=== PATIENT | female | born 1985 | race Hispanic/Latino ===

== ENCOUNTER 2018-01-16 23:36 | Emergency (ER) | payer OTHER ==
[~2018-01-16] VITALS: Ht 149.9 cm; Wt 58.1 kg
--- NOTE | 2018-01-17 01:16 | Diagnostic Imaging Report ---
EXAMINATION: Head CT without contrast. HISTORY:Numbness. COMPARISON:None. TECHNIQUE: Multidetector axial images were obtained from the foramen magnum to the vertex without contrast. The images were reconstructed using brain and bone algorithms. Thin section brain images were reformatted into coronal and sagittal planes. Dose modulation, iterative reconstruction, and/or weight based adjustment of the mA/kV was utilized to reduce the radiation dose to as low as reasonably achievable. Intravenous contrast: None IMAGE QUALITY: Acceptable. FINDINGS: Skull/scalp: No lytic or blastic. lesions. No surgical changes. Parenchyma: No abnormal density. No acute hemorrhage, mass or acute major vascular territorial infarct. Arteries: No density suggestive of thrombosis. Dural sinuses: No abnormal density suggestive of thrombosis. Ventricles: No hydrocephalus or displacement. Extra-axial spaces: No abnormal density. Brain volume: Normal for age. Craniocervical junction: No mass, Chiari malformation, or basilar invagination. Sella: No mass. Paranasal/mastoid sinuses: Mild mucosal thickening in bilateral ethmoid sinuses. IMPRESSION: No intracranial abnormality. Signed by: Dr. Annemarie Cooper M.D. on 01/17/2018 1:13 AM
--- NOTE | 2018-01-17 01:20 | Diagnostic Imaging Report ---
History: Right upper extremity pain and numbness. Comparison studies: None Technique: Axial images were obtained through the cervical region.. Coronal and sagittal images reconstructed from the axial data. Dose modulation, iterative reconstruction, and/or weight based adjustment of the mA/kV was utilized to reduce the radiation dose to as low as reasonably achievable. Intravenous contrast: None Findings: Fractures: None. Soft tissue injuries: None. Atlantoaxial articulation: Intact. Alignment: Loss of normal cervical lordosis is either positional or due to muscle spasm. No scoliosis. Cervicomedullary junction: No abnormalities. The foramen magnum is patent. Soft tissues: No abnormalities. Vertebrae: No fractures, infection or neoplasm. Degenerative changes: None. IMPRESSION: 1. No acute cervical spine fracture or dislocation. Loss of normal cervical lordosis is either positional or due to muscle spasm. 2. Ligament, spinal cord and or vascular abnormalities cannot be excluded on the basis of this examination. Signed by: Dr. Annemarie Cooper M.D. on 01/17/2018 1:17 AM
--- NOTE | 2018-01-17 01:23 | Diagnostic Imaging Report ---
EXAMINATION: CXR 2 VIEW - [facility] INDICATION: Right-sided chest pain, rib pain radiating to the right arm COMPARISON: None FINDINGS: TUBES and LINES: None. LUNGS: Lungs are well inflated. Lungs are clear. There is no evidence of pneumonia or pulmonary edema. PLEURA: No pleural effusion or pneumothorax. HEART AND MEDIASTINUM: The cardiomediastinal silhouette is unremarkable. BONES AND SOFT TISSUES: No acute osseous lesion. Soft tissues are unremarkable. UPPER ABDOMEN: No free air under the diaphragm. IMPRESSION: No acute thoracic abnormality. Signed by: Dr. Jose Francisco Barone M.D. on 01/17/2018 1:20 AM
[2018-01-17 01:48] VITALS: BP 126/68
== END 2018-01-17 01:49 | disposition home or self-care (01) ==
LOC: FSED 23:36
DX: R20.2 Paresthesia of skin (principal)
CPT/HCPCS: 70450; 71046; 72125; 80053; 80307; 81003; 81025; 82553; 84484; 85025; 93005; 99283

== ENCOUNTER 2019-02-03 17:43 | Emergency (ER) | payer OTHER ==
[~2019-02-03] VITALS: Ht 152.4 cm; Wt 62.3 kg
--- OUTSIDE RECORDS SUMMARY | 2019-02-03 17:45 | XMS REPORT ---
Author Author [facility] Organization [facility] Address Unknown Phone Unavailable Care Team Providers Care Application Helper Name Role Phone ROSEMARY GONZALEZ Unavailable Unavailable Payers Payer Name Policy Type Policy Number Effective Date Expiration Date Problems This patient has no known problems. Allergies, Adverse Reactions, Alerts Allergy Name Allergy Type Status Severity Reaction(s) Onset Date Inactive Date Treating Clinician Comments No Known Allergies DA Active U 2012-02-21 00:00:00 Medications This patient has no known medications. Results Test Description Test Time Test Comments Text Results Atomic Results Result Comments CXR 2 VIEW - [facility] 2018-01-17 01:19:00 [place] [address] Patient Name: URIAH COTTON MR #: [id number] : 1985 Age/Sex: 32/F Req #: [id number] Adm Physician: Ordered by: ROSEMARY GONZALEZ MD Report #: [id number] Location: [facility] Room/Bed: Procedure: [id number] [facility]/CXR 2 VIEW - [facility] Exam Date: 01/17/18 Exam Time: 0048 REPORT STATUS: Signed EXAMINATION: CXR 2 VIEW - [facility] INDICATION: Right- sided chest pain, rib pain radiating to the right arm COMPARISON: None FINDINGS: TUBES and LINES: None. LUNGS: Lungs are well inflated. Lungs are clear. There is no evidence of pneumonia or pulmonary edema. PLEURA: No pleural effusion or pneumothorax. HEART AND MEDIASTINUM: The cardiomediastinal silhouette is unremarkable. BONES AND SOFT TISSUES: No acute osseous lesion. Soft tissues are unremarkable. UPPER ABDOMEN: No free air under the diaphragm. IMPRESSION: No acute thoracic abnormality. Signed by: Dr. Jose Francisco Barone M.D. on 01/17/2018 1:20 AM Dictated By: JOSE FRANCISCO JONES MD 9 Transcribed By: REBECCA on 01/17/18119 COPY TO: ROSEMARY GONZALEZ MD CT C-SPINE W/O - [facility] 2018-01-17 01:13:00 [place] [address] Patient Name: URIAH COTTON MR #: [id number] : 1985 Age/Sex: 32/F Req #: [id number] Adm Physician: Ordered by: ROSEMARY GONZALEZ MD Report #: [id number] [facility] Room/Bed: Procedure: [id number] HOPD/CT C-SPINE W/O - [facility] Exam Date: 01/17/18 Exam Time: 0048 REPORT STATUS: Signed History: Right upper extremity pain and numbness. Comparison studies: None Technique: Axial images were obtained through the cervical region.. Coronal and sagittal images reconstructed from the axial data. Dose modulation, iterative reconstruction, and/or weight based adjustment of the mA/kV was utilized to reduce the radiation dose to as low as reasonably achievable. Intravenous contrast: None Findings: Fractures: None. Soft tissue injuries: None. Atlantoaxial articulation: Intact. Alignment: Loss of normal cervical lordosis is either positional or due to muscle spasm. No scoliosis. Cervicomedullary junction: No abnormalities. The foramen magnum is patent. Soft tissues: No abnormalities. Vertebrae: No fractures, infection or neoplasm. Degenerative changes: None. IMPRESSION: 1. No acute cervical spine fracture or dislocation. Loss of normal cervical lordosis is either positional or due to muscle spasm. 2. Ligament, spinal cord and or vascular abnormalities cannot be excluded on the basis of this examination. Signed by: Dr. Annemarie Cooper M.D. on 01/17/2018 1:17 AM Dictated By: ANNEMARIE COOPER MD 6 Transcribed By: REBECCA on 01/17/18116 COPY TO: ROSEMARY GONZALEZ MD CT BRAIN [facility] 2018-01-17 01:09:00 [place] [address] Patient Name: URIAH COTTON MR #: [id number] : 1985 Age/Sex: 32/F Req #: [id number] Adm Physician: Ordered by: ROSEMARY GONZALEZ MD Report #: [id number] [facility] Room/Bed: Procedure: [id number] [facility] Exam Date: 01/17/18 Exam Time: 0048 REPORT STATUS: Signed EXAMINATION: Head CT without contrast. HISTORY:Numbness. COMPARISON:None. TECHNIQUE: Multidetector axial images were obtained from the foramen magnum to the vertex without contrast. The images were reconstructed using brain and bone algorithms. Thin section brain images were reformatted into coronal and sagittal planes. Dose modulation, iterative reconstruction, and/or weight based adjustment of the mA/kV was utilized to reduce the radiation dose to as low as reasonably achievable. Intravenous contrast: None IMAGE QUALITY: Acceptable. FINDINGS: Skull/scalp: No lytic or blastic. lesions. No surgical changes. Parenchyma: No abnormal density. No acute hemorrhage, mass or acute major vascular territorial infarct. Arteries: No density suggestive of thrombosis. Dural sinuses: No abnormal density suggestive of thrombosis. Ventricles: No hydrocephalus or displacement. Extra- axial spaces: No abnormal density. Brain volume: Normal for age. Craniocervical junction: No mass, Chiari malformation, or basilar invagination. Sella: No mass. Paranasal/mastoid sinuses: Mild mucosal thickening in bilateral ethmoid sinuses. IMPRESSION: No intracranial abnormality. Signed by: Dr. Annemarie Cooper M.D. on 01/17/2018 1:13 AM Dictated By: ANNEMARIE COOPER MD 2 Transcribed By: REBECCA on 01/17/18112 COPY TO: ROSEMARY GONZALEZ MD
--- NOTE | 2019-02-03 18:58 | NUR ---
report recieved from [facility]. waiting on pateints decision on transferr. no MRI coverge for ER.
--- NOTE | 2019-02-03 19:00 | NUR ---
pt denies pain at this time. no medications given.
--- NOTE | 2019-02-03 19:15 | NUR ---
pt signed out AMA, refusing transfer. pt given risk factors and resources to follow up with. pt verbalixed understanding of risk factors for signing out AMA.
[2019-02-03 19:53] VITALS: BP 128/82
== END 2019-02-03 19:20 | disposition left against medical advice (07) ==
LOC: FSED 17:43
DX: G44.221 Chronic tension-type headache, intractable (principal); G44.89 Other headache syndrome
CPT/HCPCS: 36415; 80048; 80076; 81025; 85025; 85651; 99283

== ENCOUNTER 2019-12-06 13:15 | Emergency (ER) | payer OTHER ==
[~2019-12-06] VITALS: Ht 157.5 cm; Wt 65.8 kg
--- NOTE | 2019-12-06 13:17 | Emergency Department Note ---
History of Present Illnes History of Present Illness History of Present Illness This is a 34 year old female c/o dry cough SOB, body ache, chest pain on the right radiating to the back for 1 week, COVID tested negative twice. Seen by her pcp yesterday, rx with abx but not getting better and came here for higher level of care. . 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 Any updates have been documented here. Past Medical History Recent Fever: No Clinical Suspicion of Infectio: No New/Unexplained Change in Ment: No Past Medical History: Migraines Past Surgical History: None Other Surgery: root canal Social History Smoking Cessation: Never Smoker Any Illegal Drug Use: No Family History Family history of heart diseas: No Other Last Tetanus: UNKNOWN Review of Systems Review of Systems Constitutional: Reports as per HPI EENTM: Reports no symptoms Cardiovascular: Reports as per HPI Respiratory: Reports pain with cough, Reports dyspnea Gastrointestinal: Reports no symptoms Genitourinary: Reports no symptoms Musculoskeletal: Reports no symptoms Integumentary: Reports no symptoms Neurological: Reports no symptoms Psychological: Reports no symptoms Endocrine: Reports no symptoms Hematological/Lymphatic: Reports no symptoms Physical Exam Related Data Allergies: Coded Allergies: No Known Allergies (Unverified , 08/13/11) Vital signs reviewed: Yes (sat 100 percent RA) Physical Exam CONSTITUTIONAL Constitutional: Present well-developed, Present well-nourished HENT HENT: Present normocephalic, Present atraumatic, Present oropharynx clear/moist, Present nose normal HENT L/R: Present left ext ear normal, Present right ext ear normal EYES Eyes: Reports PERRL, Reports conjunctivae normal NECK Neck: Present ROM normal PULMONARY Pulmonary: Present effort normal, Present breath sounds normal CARDIOVASCULAR Cardiovascular: Present regular rhythm, Present heart sounds normal, Present capillary refill normal, Present normal rate GASTROINTESTINAL Abdominal: Present soft, Present nontender, Present bowel sounds normal GENITOURINARY Genitourinary: Present exam deferred SKIN Skin: Present warm, Present dry MUSCULOSKELETAL Musculoskeletal: Present ROM normal NEUROLOGICAL Neurological: Present alert, Present oriented x 3, Present no gross motor or sensory deficits PSYCHOLOGICAL Psychological: Present mood/affect normal, Present judgement normal Results Laboratory Lab results reviewed: Yes (normal) Imaging Imaging results reviewed: Yes Imaging Comments no acute Assessment & Plan Medical Decision Making MDM viral illness Reassessment Reassessment time: 15:29 Reassessment looks comfortable Assessment & Plan Final Impression: (1) Upper respiratory infection (2) Bronchitis Depart Disposition: HOME, SELF-[facility] living Meds Active Scripts Ibuprofen (IBUPROFEN IB) 200 Mg Tablet, 3 TAB PO Q6H PRN for pain, #60 Prov:RAFAEL QUINONES MD 12/06/19 Diphenhydra/Phenyleph/Acetamin (THERAFLU COLD AND COUGH POWDER) 1 Each Powd.pack, 1 PACKET PO Q6H PRN for fever and or pain, #12 Prov:RAFAEL QUINONES MD 12/06/19 Physician Attestation Provider Attestation She has abx by her PCP and she can cont to finish those RAFAEL QUINONES MD Dec 06, 2019 13:17
--- NOTE | 2019-12-06 15:02 | Diagnostic Imaging Report ---
X-ray chest 2 views Comparison: 01/17/2018 History: Unable to sleep Findings: Central airways unremarkable. Cardiomediastinal silhouettes, diaphragms, pleural spaces, bilateral lung saha, visualized skeletal structures and upper abdomen are normal. Impression: Normal exam. Signed by: He Gregorio MD on 12/06/2019 2:58 PM
[2019-12-06 15:13] LABS: BASOPHILS % 0.5 % (0.0-1.0); EOSINOPHILS % 0.3 % (0.0-6.0); HEMATOCRIT 37.5 % (34.2-44.1); HEMOGLOBIN 12.6 g/dL (12.0-16.0); LYMPHOCYTES % 22.6 % (18.0-39.1); MEAN CORPUSCULAR HEMOGLOBIN 30.5 pg (28-32); MEAN CORPUSCULAR HGB CONC 33.6 g/dL (31-35); MEAN CORPUSCULAR VOLUME 90.8 fL (81-99); MONOCYTES # (AUTO) 0.5 (0.2-0.8); MONOCYTES % 5.5 % (4.4-11.3); NEUTROPHILS # (AUTO) 6.3 (2.1-6.9); NEUTROPHILS % 70.9 % (38.7-80.0); PLATELET COUNT 285 x10e3/uL (140-360); RED BLOOD COUNT 4.13 x10e6/uL (3.6-5.1)
[2019-12-06] MEDS ORDERED: THERAFLU COLD1 EAC4 PO (15:22)
[2019-12-06] MEDS ORDERED: IBUPROFEN IB200 MG PO (15:22)
[2019-12-06 17:15] VITALS: BP 101/70
--- OUTSIDE RECORDS SUMMARY | 2019-12-07 20:41 | XMS REPORT | Continuity of Care Document ---
Author Author [facility] t Organization [facility] Address [address] [place] [address] Phone Unavailable Care Team Providers Care Civil Litigation Attorney Name Role Phone MD ELIZABETH NOONAN PCP [place] QUINONES Attphys Unavailable ROSEMARY GONZALEZ Attphykenia Unavailable Payers Payer Name Policy Type Policy Number Effective Date Expiration Date S yokasta [facility] [id number] 2018 00:00:00 [facility] [place] Problems Condition Name Condition Details Condition Category Status Onset Date Resolution Date Last Treatment Date Treating Clinician Comments Source Upper respiratory tract infection Problem Active [facility] [place] Bronchitis Problem Active [facility] Allergies, Adverse Reactions, Alerts Allergy Name Allergy Type Status Severity Reaction(s) Onset Date Inacti ve Date Treating Clinician Comments Source No Known Allergies DA Active U 2012-02-21 00:00:00 [facility] Social History Social Habit Start Date Stop Date Quantity Comments Source Sex Assigned At 1985 00:00:00 1985 00:00:00 Female [facility] [place] Medications Ordered Medication Name Filled Medication Name Start Date Stop Da te Current Medication? Ordering Clinician Indication Dosage Frequency Signature (SIG) Comments Components Source Diphenhydra/Phenyleph/Acetamin (Theraflu Cold And Cough Powder) 1 Each POWD.PACK Diphenhydra/Phenyleph/Acetamin (Theraflu Cold And Cough Powder) 1 Each POWD.PACK 2019-12-06 15:22:00 Yes 1 Ever y 6 Hours as needed for Fever And Or Pain [facility] Ibuprofen (Ibuprofen Ib) 200 Mg TABLET Ibuprofen (Ibuprofen Ib) 200 Mg TABLET 2019-12-06 15:22:00 Yes 3 Every 6 Hours as n eeded for Pain [facility] [place] Vital Signs Vital Name Observation Time Observation Value Comments Source Body Temperature 2019-12-06 17:15:00 98.9 [degF] [facility] [place] Weight 2019-12-06 16:05:00 145 [lb_av] [facility] [place] BMI (Body Mass Index) 2019-12-06 16:05:00 26.5 kg/m2 [facility] [place] Procedures This patient has no known procedures. Plan of Care Planned Activity Planned Date Details Comments Source Instructions Back Pain [facility] [place] Instructions Upper Respiratory Infection - Adult [facility] [place] Encounters Start Date/Time End Date/Time Encounter Type Admission Type [facility] Care Department Encounter ID Source 2019-12-06 14:03:00 2019-12-06 17:15:00 Departed Emergency Room 1 RAFAEL QUINONES [facility] [id number] [facility] 2019-02-03 17:43:00 2019-02-03 19:20:00 Departed Emergency Room [facility] [id number] [facility] 2018-01-16 23:36:00 2018-01-17 01:49:00 Departed Emergency Room 1 ROSEMARY GONZALEZ [facility] [id number] [facility] [place] Results Test Description Test Time Test Comments Results Result Comments Source CXR 2 VIEW - HOPD 2019-12-06 14:57:00 [place] [address] Patient Name: URIAH COTTON MR #: [id number] : 1985 Age/Sex: 34/F Req #: [id number] Adm Physician: Ordered by: RAFAEL QUINONES MD Report #: [id number] [facility] Room/Bed: Procedure: [id number] HOPD/CXR 2 VIEW - HOPD Exam Date: 12/06/19 Exam Time: 1438 REPORT STATUS: Signed X-ray chest 2 views Comparison: 01/17/2018 History: Unable to sleep Findings: Central airways unremarkable. Cardiomediastinal silhouettes, diaphragms, pleural spaces, bilateral lung saha, visualized skeletal structures and upper abdomen are n ormal. Impression: Normal exam. Signed by: He Charles MD on 12/06/2019 2:58 PM Dictated By: HE CHARLES MD 57 Transcribed By: REBECCA on 12/06/191457 COPY TO: RAFAEL QUINONES MD Blood leukocytes automated count (number/volume) 2019-12-06 14:20:00 Test Item White Blood Count (test code = 6690-2) 8.88 4.8-10.8 [facility] count (number/volume)2019-12-06 14:20:00* Test Item Value Reference Range Interpretation Comments Red Blood Count (test code = 789-8) 4.13 3.6-5.1 [facility] measurement (moles/volume)2019-12-06 14:20:00* Test Item Value Reference Range Interpretation Comments Hemoglobin (test code = 89195-5) 12.6 12.0-16.0 [facility] hematocrit (volume fraction)2019-12-06 14:20:00* Test Item Value Reference Range Interpretation Comments Hematocrit (test code = 4544-3) 37.5 34.2-44.1 [facility] eryth[facility] mean corpuscular enqojw1786-57-31 14:20:00* Test Item Value Reference Range Interpretation Comments Mean Corpuscular Volume (test code = 787-2) 90.8 81-99 [facility] mean corpuscular hemoglobin (mass per erythrocyte)2019-12-06 14:20:00* Test Item Value Reference Range Interpretation Comments Mean Corpuscular Hemoglobin (test code = 785-6) 30.5 28-32 [facility] eryth[facility] mean corpuscular hemoglobin concentration measurement (mass/volume)2019-12-06 14:20:00* Test Item Value Reference Range Interpretation Comments Mean Corpuscular Hemoglobin Concent (test code = 786-4) 33.6 31-35 [facility] [place]DW XvpBq-Azc9910-06-30 14:20:00* Test Item Value Reference Range Interpretation Comments Red Cell Distribution Width (test code = 94728-7) 12.0 11.7 -14.4 [facility] platelet count (count/volume)2019-12-06 14:20:00* Test Item Value Reference Range Interpretation Comments Platelet Count (test code = 777-3) 285 140-360 [facility] segmented neutrophil count as percentage of total efmgdocypy2879-61-29 14:20:00* Test Item Value Reference Range Interpretation Comments Neutrophils (%) (Auto) (test code = 78161-2) 70.9 38.7-80.0 [facility] lymphocyte count as percentage ot total arvxajwxes5478-63-54 14:20:00* Test Item Value Reference Range Interpretation Comments Lymphocytes (%) (Auto) (test code = 736-9) 22.6 18.0-39.1 [facility] monocyte count as percentage of total fryzovqqjk4302-48-62 14:20:00* Test Item Value Reference Range Interpretation Comments Monocytes (%) (Auto) (test code = 5905-5) 5.5 4.4-11.3 [facility] eosinophil count as percentage of total grdbqleyvk1514-19-14 14:20:00* Test Item Value Reference Range Interpretation Comments Eosinophils (%) (Auto) (test code = 713-8) 0.3 0.0-6.0 [facility] basophil count as percentage of total iadyihzjbe6142-94-31 14:20:00* Test Item Value Reference Range Interpretation Comments Basophils (%) (Auto) (test code = 706-2) 0.5 0.0-1.0 [facility]Fluor[facility] procedure less than one hour tluhpumr7610-70-51 14:20:00* Test Item Value Reference Range Interpretation Comments IM GRANULOCYTES % (test code = IM GRANULOCYTES %) 0.2 0.0- 1.0 [facility] neutrophil count 2019-12-06 14:20:00* Test Item Value Reference Range Interpretation Comments Neutrophils # (Auto) (test code = 751-8) 6.3 2.1-6.9 [facility] lymphocytes count (number/volume) 2019-12-06 14:20:00* Test Item Value Reference Range Interpretation Comments Lymphocytes # (Auto) (test code = 31887-2) 2.0 1.0-3.2 [facility] monocytes automated count (number/volume)2019-12-06 14:20:00* Test Item Value Reference Range Interpretation Comments Monocytes # (Auto) (test code = 742-7) 0.5 0.2-0.8 [facility] eosinophil count 2019-12-06 14:20:00* Test Item Value Reference Range Interpretation Comments Eosinophils # (Auto) (test code = 711-2) 0.0 0.0-0.4 [facility] basophil count (count/volume)2019-12-06 14:20:00* Test Item Value Reference Range Interpretation Comments Basophils # (Auto) (test code = 704-7) 0.0 0.0-0.1 [facility]Fluor[facility] procedure less than one hour apexadhw6051-71-17 14:20:00* Test Item Value Reference Range Interpretation Comments Absolute Immature Granulocyte (auto (earlene t code = Absolute Immature Granulocyte (auto) 0.02 0-0.1 [facility] [place]- CT HEAD/BRAIN W/O [id number] 21:45:00 Patient Name: URIAH COTTON ([facility]) Unit No: [id number] EXAMS: CPT CODE: [id number] CT HEAD/BRAIN W/O CONT [address] HEAD INDICATION: Headache. canal surgery 3 weeks prior. TECHNIQUE: Unenhanced CT was performed from the skull vertex to the foramen magnum with axial, coronal and sagittal reconstructions. CT imaging performed at this location utilizes radiation dose optimization technique which includes one or more of the followin) Automated exposure control; 2) Adjustment of the mA and/or kV according to patient's size; 3) Use of iterative reconstruction techniques. DLP (mGy-cm): 672 COMPARISONS: None. FINDINGS: The paranasal sinuses are clear as visualized. The mastoid air cells and middle ears appear clear as visualized. There is no acute osseous fracture or dislocation. The cerebral ventricles are normal caliber. There is no cerebral mass effect, midline shift, intracranial hemorrhage or acute large vessel territory cerebral cortical edema. IMPRESSION: 1. There is no acute intracranial process. Normal brain. at 2145 Reported and signed by: Donnie Brito DO CC: Jimbo Palomo MD Technologist: RT Jody CTDI: DLP: Trnscrbd D/ (2145) [id number] [facility] NAME: URIAH COTTON ([facility]) Radiology Department PHYS: Jimbo Sky [address] : 1985 AGE: 33 SEX: F [place], [place] [address] LOC: FGoldenERS PHONE #: [phone] EXAM DATE: 02/13/2019 STATUS: REG ER FAX #: [phone] RAD NO: Page 1 Signed Report 1 Patient Name: URIAH COTTON ([facility]) Unit No: [id number] EXAMS: CPT CODE: [id number] CT HEAD/BRAIN W/O CONT 03574 <Continued> Orig Print D/T: S: 02/13/2019 (2148) [facility] NAME: URIAH COTTON ([facility]) Radiology Department PHYS: Jimbo [address] : 1985 AGE: 33 SEX: F [place], [place] [address] LOC: AlyceERS PHONE #: [phone] EXAM DATE: 02/13/2019 STATUS: REG ER FAX #: [phone] RAD NO: Page 2 Si gned Report 1 UA RFLX MICR CULT IF INDICATED 2019-02-13 21:34:00* Test Item Value Reference Range Interpretation Comments UA COLOR (test code = COLU) YELLOW UA APPEARANCE (test code = APPU) CLEAR UA GLUCOSE DIPSTICK (test code = DGLUU) NEGATIVE UA BILIRUBIN DIPSTICK (test code = BILU) NEGATIVE UA KETONE DIPSTICK (test code = KETU) NEGATIVE UA SPECIFIC GRAVITY (test code = SGU) 1.001-1.035 UA BLOOD DIPSTICK (test code = CHRISTI) NEGATIVE UA PH DIPSTICK (test code = RAMIRO) 5-9 UA PROTEIN DIPSTICK (test code = PROU) NEGATIVE UA UROBILINIOGEN DIPSTICK (test code = URO) mg/dL NEG UA NITRITE DIPSTICK (test code = JACE) NEGATIVE UA LEUKOCYTE ESTERASE DIPSTICK (test code = LEUU) NEG UA WBC (test code = WBCU) #/hpf NONE SEEN UA EPITHELIAL CELLS (test code = EPIU) #/HPF RARE-FEW Indication for culture: Suprapubic PainUR HCG [id number] 21:34:00* Test Item Value Reference Range Interpretation Comments UR HCG QUAL (test code = HCGQLU) NEGATIVE 1. Very dilute urine specimens, as indicated by a lowspecific gravity, may not contain account development representative levels ofhCG. 2. False negative results may occur when the levels of hCGare below the sensitivity level of the test. If is still suspected, a first morningurine specimen should be collected 48 hours later andtested. Indication for culture: Suprapubic PainUA RFLX MICR CULT IF INDICATED 2019-02-13 21:34:00* Test Item Value Reference Range Interpretation Comments UA COLOR (test code = COLU) COLORLESS YELLOW UA APPEARANCE (test code = APPU) CLEAR CLEAR UA GLUCOSE DIPSTICK (test code = DGLUU) NEGATIVE NEG UA BILIRUBIN DIPSTICK (test code = BILU) NEGATIVE NEG UA KETONE DIPSTICK (test code = KETU) NEGATIVE NEG UA SPECIFIC GRAVITY (test code = SGU) 1.001 1.001-1.035 N UA BLOOD DIPSTICK (test code = CHRISTI) 2+ NEG A UA PH DIPSTICK (test code = RAMIRO) 7.0 5-9 UA PROTEIN DIPSTICK (test code = PROU) NEGATIVE NEG UA UROBILINIOGEN DIPSTICK (test code = URO) NEGATIVE mg/dL NEG UA NITRITE DIPSTICK (test code = JACE) NEG NEG UA LEUKOCYTE ESTERASE DIPSTICK (test code = LEUU) NEG NEG UA WBC (test code = WBCU) 0-2 #/hpf NONE SEEN UA EPITHELIAL CELLS (test code = EPIU) RARE #/HPF RARE-FEW UA MUCUS (test code = MUCU) RARE NONE SEEN Indication for culture: Suprapubic PainUR HCG [id number] 21:34:00* Test Item Value Reference Range Interpretation Comments UR HCG QUAL (test code = HCGQLU) NEGATIVE 1. Very dilute urine specimens, as indicated by a lowspecific gravity, may not contain account development representative levels ofhCG. 2. False negative results may occur when the levels of hCGare below the sensitivity level of the test. If is still suspected, a first morningurine specimen should be collected 48 hours later andtested. Indication for culture: Suprapubic PainErythrocyte Sedimentation Rate 2019-02-03 20:13:00* Test Item Value Reference Range Interpretation Comments Erythrocyte Sedimentation Rate (test code = 4537-7) 10 0- 20 [facility] - [id number] 01:19:00 [place] [address] Patient Name: URIAH COTTON MR #: [id number] : 1985 Age/Sex: 32/F Req #: [id number] [facility] Physician : Ordered by: ROSEMARY GONZALEZ MD Report #: [id number] Location: [employer] m/Bed: Procedure: [id number] HOPD/CXR 2 VIEW - HOPD E xam Date: 01/17/18 Exam Time: 0048 REPORT STATU S: Signed EXAMINATION: CXR 2 VIEW - [facility] INDICATION: Righ t-sided chest pain, rib pain radiating to the right arm COMPARISON: Non e FINDINGS: TUBES and LINES: None. LUNGS: Lungs are well infl ated. Lungs are clear. There is no evidence of pneumonia or pulmonary edema . PLEURA: No pleural effusion or pneumothorax. HEART AND MEDIASTINUM: The cardiomediastinal silhouette is unremarkable. BONES AND SOFT TISS UES: No acute osseous lesion. Soft tissues are unremarkable. UPPER ABDO MEN: No free air under the diaphragm. IMPRESSION: No acute thoracic abnormality. Signed by: Dr. Jose Francisco Barone M.D. on 01/17/2018 1:20 AM Dictated By: JOSE FRANCISCO JONES MD 9 Transcribed By: REBECCA on 01/17/18119 COPY TO: ROSEMARY GONZALEZ MD CT C-SPINE W/O - [id number] 01:13:00 [place] [address] Patient Name: URIAH COTTON MR #: [id number] : 1985 Age/Sex: 32/F Req #: [id number] Adm Physician: Ordered by: ROSEMARY GONZALEZ MD Report #: [id number] Location: [facility] m/Bed: Procedure: [id number] HOPD/CT C-SPINE W/O - HOP D Exam Date: 01/17/18 Exam Time: 47 S TATUS: Signed History: Right upper extremity pain and numbness. Comparis on studies: None Technique: Axial images were obtained through the cervi leonard region.. Coronal and sagittal images reconstructed from the axial data. Dose modulation, iterative reconstruction, and/or weight based adjustment of t he mA/kV was utilized to reduce the radiation dose to as low as reasonably ach ievable. Intravenous contrast: None Findings: Fractures: None. Soft [...] be excluded on the basis of this exa mination. Signed by: Dr. Annemarie Cooper M.D. on 01/17/2018 1:17 AM Dictated By: ANNEMARIE COOPER MD 6 Transcribed By: REBECCA on 01/17/18116 COPY TO: ROSEMARY HANCOCK MD CT BRAIN [id number] 01:09:00 [place] [address] Patient Name: COTTON,URIAH L MR #: [id number] : 1985 Age/[facility] 32[id number] Req #: [id number] Adm Physician: Ordered by: ROSEMARY GONZALEZ MD Report #: [id number] [facility] Room/Bed: Procedure: [id number] HOPD/CT BRAIN WO-HOPD Ex am Date: 01/17/18 Exam Time: 0048 REPORT STATUS : Signed EXAMINATION: Head CT without contrast. HISTORY:Numbness. COMPARISON:None. TECHNIQUE: Multidetector axial images were obtained from the foramen magnum to the vertex without contrast. The images were reconstruc candice using brain and bone algorithms. Thin section brain images were reformatt ed into coronal and sagittal planes. Dose modulation, iterative reconstructi on, and/or weight based adjustment of the mA/kV was utilized to reduce the rad iation dose to as low as reasonably achievable. Intravenous contrast: Non e IMAGE QUALITY: Acceptable. FINDINGS: Skull/scalp: No lytic o r blastic. lesions. No surgical changes. Parenchyma: No abnormal density. No acute hemorrhage, mass or acute major vascular territorial infarct. Arteries: No density suggestive of thrombosis. Dural sinuses: No abnorm al density suggestive of thrombosis. Ventricles: No hydrocephalus or disp lacement. Extra-axial spaces: No abnormal density. Brain volume: N ormal for age. Craniocervical junction: No mass, Chiari malformation, or b asilar invagination. Sella: No mass. Paranasal/mastoid sinuses: M ild mucosal thickening in bilateral ethmoid sinuses. IMPRESSION: No intracranial abnormality. Signed by: Dr. Annemarie Cooper M.D. on 01/17/2018 1:13 AM Dictated By: ANNEMARIE COOPER MD 2 Transcribed By: REBECCA on 01/17/18112 C OPY TO: ROSEMARY GONZALEZ MD
== END 2019-12-06 17:15 | disposition home or self-care (01) ==
LOC: FSED 14:03
DX: J40 Bronchitis, not specified as acute or chronic (principal); J06.9 Acute upper respiratory infection, unspecified; R05 Cough; R06.02 Shortness of breath
CPT/HCPCS: 36415; 71046; 80053; 81003; 81025; 82553; 84484; 85025; 99284